=== PATIENT | male | born 1995 | race Hispanic/Latino ===

== ENCOUNTER 2024-08-19 12:47 | Emergency (ER) | payer OTHER ==
[~2024-08-19] VITALS: Ht 170.2 cm; Wt 72.6 kg
[~2024-08-19 12:47] MED LIST: IBUP-2077 PO
--- NOTE | 2024-08-19 13:06 | ERN ---
General Chief Complaint: Suture/Staple Removal Stated Complaint: CHAI REMOVAL Time Seen by MD: 12:55 Time Seen by Midlevel: 12:55 Source: patient History of Present Illness Initial Comments Patient is a 29-year-old male with no significant past medical history presenting for a staple removal. Patient reports having two chai placed approximately 10 days ago. Patient has no concerns. 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 13 point review of systems assessed and all negative except for above. Physical Exam Physical Exam Dictation PHYSICAL EXAM: GENERAL: alert,, awake oriented x 3 HEENT: EOMI, Sclera non icteric, moist mucosa NECK: Supple, no JVD, trachea midline LUNGS: Clear breath sounds bilaterally. No wheezes HEART: Regular rate and rhythm. Normal S1 and S2, without murmurs ABD: Abdomen soft, nontender. Bowel sounds present EXT: No clubbing or cyanosis, NEURO: Alert and oriented to person, follows commands Skin: Two chai in place to the right parietal area with no signs of infection MDM Patient is a 29-year-old male with no significant past medical history presenting for a staple removal. Patient reports having two chai placed approximately 10 days ago. Patient has no concerns. On exam there are two chai to the scalp with no signs of infection. Two chai were successfully removed with no complications. Patient will be discharged home ED Course Vital Signs Date Time Temp Pulse Resp B/P (MAP) Pulse Ox O2 Delivery O2 Flow Rate FiO2 08/19/24 13:16 98.2 60 16 132/70 98 Room Air* 0 21 08/19/24 12:53 98.8 78 20 121/74 98 Room Air 0 DX & DISP Disposition: Discharge Departure Impression: Primary Impression: Removal of chai Condition: Stable Additional Instructions: Two chai were successfully removed. There is no signs of infection. Follow up with your PCP in 2-3 days for repeat evaluation. Return to the ER for any new or worsening symptoms. Referrals: SELF,REFERRAL (PCP) Time of Disposition: 13:06 I have reviewed the case, and I agree with, Diagnosis and Plan I performed the substantive portion of the visit. I have reviewed and personally made and approve the management plan that is documented in the note by myself or the MELI. I acknowledge for responsibility for the patient's management plan. RADHA HERRING Aug 19, 2024 13:06
[2024-08-19 13:16] VITALS: BP 132/70; PULSE 60; RESP 16; TEMP 98.3; O2SAT 98
== END 2024-08-19 13:18 | disposition home or self-care (01) ==
LOC: EDH 12:47
DX: S01.01XD Laceration without foreign body of scalp, subsequent encounter (principal); Z48.02 Encounter for removal of sutures; Z79.899 Other long term (current) drug therapy; X58.XXXD Exposure to other specified factors, subsequent encounter
CPT/HCPCS: 99281